=== PATIENT | male | born 1950 | race Caucasian/White ===

== ENCOUNTER 2017-02-05 14:36 | Emergency (ER) | payer OTHER, BC ==
[2017-02-05 15:08] VITALS: BMI 30.4
--- NOTE | 2017-02-05 16:36 | PDOC ---
History of Present Illness - General Chief Complaint: Injury Stated Complaint: FALL Time Seen by Provider: 02/05/17 15:40 Past History - Past Medical History Allergies/Adverse Reactions: Allergies Allergy/AdvReac Type Severity Reaction Status Date / Time No Known Allergies Allergy Verified 02/05/17 15:05 Home Medications: Ambulatory Orders Amlodipine Besylate/Benazepril [Lotrel 10-20 mg Capsule] 1 each PO DAILY #0 capsule 01/24/13 Aspirin [ASA -] 81 mg PO DAILY 02/05/17 Metoprolol Succinate [Toprol Xl] 50 mg PO DAILY 02/05/17 CVA: No COPD: No DVT: No HTN: Yes - Immunization History Immunization Up to Date: Yes - Suicide/Smoking/Psychosocial Hx Smoking History: Never smoked Have you smoked in the past 12 months: No Number of Cigarettes Smoked Daily: 0 Information on smoking cessation initiated: No Hx Alcohol Use: No Drug/Substance Use Hx: No Substance Use Type: None Hx Substance Use Treatment: No *Physical Exam - Vital Signs Last Vital Signs Temp Pulse Resp BP Pulse Ox 97.5 F L 80 16 152/81 100 02/05/17 15:05 02/05/17 15:05 02/05/17 15:05 02/05/17 15:05 02/05/17 15:05 ED Treatment Course - RADIOLOGY Radiology Studies Ordered: Category Date Time Status HEAD CT WITHOUT CONTRAST [CT] Stat CT Scan 02/05/17 16:13 Ordered KNEE 3 POS-LEFT [RAD] Stat Radiology 02/05/17 16:13 Ordered KNEE 3 POS-RIGHT [RAD] Stat Radiology 02/05/17 16:13 Ordered PELVIS [RAD] Stat Radiology 02/05/17 16:21 Ordered SPINE-LUMBAR SACRAL [RAD] Stat Radiology 02/05/17 16:13 Ordered - Medications Given in the ED: ED Medications Discontinued Medications Generic Name Dose Route Start Last Admin Trade Name Freq PRN Reason Stop Dose Admin Oxycodone/Acetaminophen 1 combo 02/05/17 16:14 02/05/17 16:23 Percocet 5/325 - PO 02/05/17 16:15 1 combo ONCE ONE Administration *DC/Admit/Observation/Transfer - Referrals Referrals: Oni Maza MD [Primary Care Provider] - - Patient Instructions - Post Discharge Activity
--- NOTE | 2017-02-05 17:11 | PDOC ---
History of Present Illness - General Chief Complaint: Injury Stated Complaint: FALL Time Seen by Provider: 02/05/17 15:40 History Source: Patient Exam Limitations: No Limitations - History of Present Illness Initial Comments: 02/05/17 16:57 CHIEF COMPLAINT: Fall, bilateral knee pain and back pain HISTORY OF PRESENT ILLNESS: Patient is a 66-year-old male history of hypertension ambulatory to the emergency department reporting that he fell approximately 12 feet was cleaning his gutters the ladder slipped and he held onto the gutter, ago then gave that he fell to the ground onto his feet and then fell back onto his back hitting the back pof his head on stones, ports that he does not believe that he lost consciousness. Presents with bilateral knee pain, back pain and right posterior upper arm pain. Patient was initially seen in fast track, x-rays of bilateral knees, lower back, hip and pelvis, CBC, CMP, urinalysis, head CT ordered by Lakeisha SAUNDERS. MEDS:[ Amlodipine, metoprolol, aspirin] ALLERGIES: [None] PCP: [Dr. Maza] REVIEW OF SYSTEMS: GENERAL/CONSTITUTIONAL: Awake alert and oriented HEAD, EYES, EARS, NOSE AND THROAT: No change in vision. No facial edema, no bruising. NO active bleeding. Nares intact. RESPIRATORY: No cough, wheezing, or hemoptysis. CARDIAC: Denies chest pain, no shortness of breathe. MUSCULOSKELETAL: Right lower back pain, there is a bruise noted to right posterior upper arm, bilateral knee edema and pain, Good ROM to all four extremities with associated pain. NO CVA tenderness. [] lateral neck pain. GI/: Denies abdominal pain, no nausea or vomiting, no bloody stool, no Hematuria. SKIN : No erythema or bruising noted. No abrasion or lacerations. NEUROLOGIC: No loss of consciousness, no numbness or tingling. PHYSICAL EXAM: GENERAL: Awake and alert and oriented x3. EYES: The pupils are equal, round, and reactive to light, with clear, conjunctiva. Good extraocular movement. No nystagmus FACE: Abrasions to left side of face NOSE: No nasal trauma . Midface stable MOUTH: Teeth intact. EARS: The ear canals and tympanic membranes are normal without trauma. No drainage. NECK: No Lower cervical C-spine tenderness, no pain with chin to chest. CHEST: The lungs are clear without crackles, or wheezes. No subcutaneous emphysema. No crepitus. HEART: Heart is regular rhythm, with normal S1 and S2, no murmurs. ABDOMEN: The abdomen is soft and nontender with normal bowel sounds. There is no guarding or rebound. MUSCULOSKELETAL: No spinal point tenderness. No bruising or erythema. Pelvis stable.Decreased range of motion to bilateral knees related to pain and edema, Bilateral patella pain negative drop test. Negative posterior leg test. No joint laxity noted, bruising, abrasions and edema to bilateral knees with right worse than the left +3 popliteal pulse. Negative Homans sign. No calf pain or tenderness, no erythema or edema. EXTREMITIES: Extremities are normal. No visible traumatic injury. NEUROLOGICAL:Mental status: The patient is oriented x3. No Generalized headache , Romberg [-] Cranial nerves: Cranial nerves II through XII are intact Motor: The upper extremities are 5 over 5 in all muscle groups. The lower extremities are 5 over 5 in all muscle groups. Sensation: Sensation is intact to light touch throughout. Cerebellar: Ijfnbx-apharr-onre is normal in both upper extremities. Heel-knee- samuel is normal in both lower extremities. Reflexes: 2+ and symmetric in the upper and lower extremities. Gait: Normal. Heel and toe walking are normal. Tandem gait is normal. SKIN: Bilateral bruising and abrasions to bilateral knees, abrasions to face 02/05/17 18:09 Past History - Past Medical History Allergies/Adverse Reactions: Allergies Allergy/AdvReac Type Severity Reaction Status Date / Time No Known Allergies Allergy Verified 02/05/17 15:05 Home Medications: Ambulatory Orders Amlodipine Besylate/Benazepril [Lotrel 10-20 mg Capsule] 1 each PO DAILY #0 capsule 01/24/13 Aspirin [ASA -] 81 mg PO DAILY 02/05/17 Metoprolol Succinate [Toprol Xl] 50 mg PO DAILY 02/05/17 Oxycodone HCl/Acetaminophen [Percocet 5-325 mg Tablet] 1 - 2 tab PO Q4H #20 tablet MDD 10 02/06/17 CVA: No COPD: No DVT: No HTN: Yes - Immunization History Immunization Up to Date: Yes - Suicide/Smoking/Psychosocial Hx Smoking History: Never smoked Have you smoked in the past 12 months: No Number of Cigarettes Smoked Daily: 0 Information on smoking cessation initiated: No Hx Alcohol Use: No Drug/Substance Use Hx: No Substance Use Type: None Hx Substance Use Treatment: No *Physical Exam - Vital Signs Last Vital Signs Temp Pulse Resp BP Pulse Ox 97.5 F L 80 16 152/81 100 02/05/17 15:05 02/05/17 15:05 02/05/17 15:05 02/05/17 15:05 02/05/17 15:05 ED Treatment Course - LABORATORY CBC & Chemistry Diagram: 02/05/17 18:20 02/05/17 18:20 - Medications Given in the ED: ED Medications Discontinued Medications Generic Name Dose Route Start Last Admin Trade Name Freq PRN Reason Stop Dose Admin Oxycodone/Acetaminophen 1 combo 02/05/17 16:14 02/05/17 16:23 Percocet 5/325 - PO 02/05/17 16:15 1 combo ONCE ONE Administration Medical Decision Making - Medical Decision Making 02/05/17 17:48 A/P: Patient here status post fall from approximately 12 feet onto feet complaining of bilateral knee pain, back pain and bruising to right upper posterior arm. X-rays were performed of lower back and bilateral knees, no acute injury on wet read. Decrease in pain noted after Percocet. Awaiting head CT I am signing this patient out to my colleague: [CHIP Moses] In brief, this patient is being seen in the ED for a chief complaint of: [fall approximately 12 feet, bilateral knee pain, back pain and posterior right upper arm pain] Initial assessment was performed by CHIP Mcfadden and labs, UA, x-rays and CAT scan were ordered, Percocet for pain I have reviewed the following results: [Wet read: Bilateral knees and back by MD Huang, No acute fracture noted, awaiting labs, CT scan of head. ] Pending results are: [Labs, Xrays, Ct Scan, UA] Please call the PCP: [Dr. Maza] Plan for disposition is as follows: [Pending] *DC/Admit/Observation/Transfer Diagnosis at time of Disposition: Knee sprain, bilateral Head injury, closed Qualifiers: Encounter type: initial encounter Qualified Code(s): S09.90XA - Unspecified injury of head, initial encounter Low back pain Qualifiers: Chronicity: acute Back pain laterality: left Sciatica presence: without sciatica Qualified Code(s): M54.5 - Low back pain - Prescriptions Prescriptions: Oxycodone HCl/Acetaminophen [Percocet 5-325 mg Tablet] 1 - 2 tab PO Q4H #20 tablet MDD 10 - Referrals Referrals: Oni Maza MD [Primary Care Provider] - Oni Bay MD [Staff Physician] - Guilherme Stephen MD [Staff Physician] - - Patient Instructions Printed Discharge Instructions: DI for Knee Sprain, DI for Low Back Pain, DI for Closed Head Injury Additional Instructions: Follow-up with the neurosurgeon/Dr. Bay Follow-up with the orthopedist/Dr. Stephen Rest, elevate, ice to your knees Ice to your low back for the next 48 hours Tylenol as needed for pain As discussed in depth, your to return back to the emergency department for any new, persistent/recurrent, worsening or severe discomfort, bladder or bowel dysfunction. - Post Discharge Activity
--- NOTE | 2017-02-05 17:40 | PDOC ---
*Physical Exam - Vital Signs Last Vital Signs Temp Pulse Resp BP Pulse Ox 97.5 F L 80 16 152/81 100 02/05/17 15:05 02/05/17 15:05 02/05/17 15:05 02/05/17 15:05 02/05/17 15:05 ED Treatment Course - Medications Given in the ED: ED Medications Discontinued Medications Generic Name Dose Route Start Last Admin Trade Name Freq PRN Reason Stop Dose Admin Oxycodone/Acetaminophen 1 combo 02/05/17 16:14 02/05/17 16:23 Percocet 5/325 - PO 02/05/17 16:15 1 combo ONCE ONE Administration Medical Decision Making - Medical Decision Making 02/05/17 17:38 Pt seen by the Advanced Practice Provider under my direct supervision Pt interviewed and examined Ancillary studies reviewed I agree with plan as outlined by the Advanced Practice Provider BEN DAY ARTIST Andolino Vital Signs Temp Pulse Resp BP Pulse Ox 97.5 F L 80 16 152/81 100 02/05/17 15:05 02/05/17 15:05 02/05/17 15:05 02/05/17 15:05 02/05/17 15:05 66-year-old male with history of hypertension presents with fall from 12 feet. Patient was attempted to clean his gutters when he was dangling off the side of the roof and he fell med on his feet and then onto his back. Reported hitting his head but likely no loss of consciousness. Patient patient takes baby aspirin. Complains of bilateral knees and lower back pain. Came into the ED for further evaluation. I agree with plan for CAT scan head, x-rays of bilateral knees and lower back. Patient has some scratches along the right upper arm but no bony tenderness. *DC/Admit/Observation/Transfer - Referrals Referrals: Oni Maza MD [Primary Care Provider] - - Patient Instructions - Post Discharge Activity
[2017-02-05 18:26] LABS: BASOPHIL 0.5 % (0-2.0); EOSINOPHIL 0.4 % (0-4.5); MCH 30.9 pg (25.7-33.7); MCHC 34.1 g/dl (32.0-35.9); MEAN CELL VOLUME 90.5 fl (80-96); MEAN PLT VOLUME 7.5 fl (7.5-11.1); PLATELET COUNT 238 K/MM3 (134-434); RDW 14.1 % (11.9-15.9); WHITE BLOOD COUNT 12.9 K/mm3 (4.0-10.0)
[2017-02-05 18:33] LABS: URINE APPEARANCE CLEAR; URINE BILIRUBIN NEGATIVE (NEGATIVE); URINE BLOOD NEGATIVE (NEGATIVE); URINE COLOR LTYELLOW; URINE GLUCOSE (UA) NEGATIVE (NEGATIVE); URINE KETONE NEGATIVE (NEGATIVE); URINE NITRITE NEGATIVE (NEGATIVE); URINE PROTEIN NEGATIVE (NEGATIVE); URINE UROBILINOGEN NEGATIVE mg/dL (0.2-1.0)
[2017-02-05 19:15] LABS: ALBUMIN 3.8 g/dl (3.4-5.0); ALK PHOS 83 U/L (45-117); ANION GAP 7 (8-16); BILIRUBIN,TOTAL 0.6 mg/dL (0.2-1.0); CALCIUM 8.5 mg/dL (8.5-10.1); CO2 27 mmol/L (21-32); GLUCOSE,RANDOM 108 mg/dL (74-106); SGOT/AST 15 U/L (15-37); SGPT/ALT 34 U/L (12-78); TOT PROT 6.9 g/dl (6.4-8.2)
[2017-02-05 19:37] VITALS: BP 133/72; PULSE 78; TEMP 98.1
--- NOTE | 2017-02-05 20:34 | PDOC ---
*Physical Exam - Vital Signs Last Vital Signs Temp Pulse Resp BP Pulse Ox 98.1 F 78 18 133/72 98 02/05/17 19:36 02/05/17 19:36 02/05/17 19:36 02/05/17 19:36 02/05/17 19:36 ED Treatment Course - LABORATORY CBC & Chemistry Diagram: 02/05/17 18:20 02/05/17 18:20 - ADDITIONAL ORDERS Additional order review: Laboratory Results 02/05/17 02/05/17 18:25 18:20 Sodium 143 Potassium 3.8 Chloride 109 H Carbon Dioxide 27 Anion Gap 7 L BUN 12 Creatinine 1.0 Creat Clearance w eGFR > 60 Random Glucose 108 H Calcium 8.5 Total Bilirubin 0.6 D AST 15 D ALT 34 D Alkaline Phosphatase 83 Total Protein 6.9 Albumin 3.8 D Urine Color Ltyellow Urine Appearance Clear Urine pH 5.0 Ur Specific [place] 1.006 Urine Protein Negative Urine Glucose (UA) Negative Urine Ketones Negative Urine Blood Negative Urine Nitrite Negative Urine Bilirubin Negative Urine Urobilinogen Negative 02/05/17 18:20 RBC 5.06 MCV 90.5 MCHC 34.1 RDW 14.1 MPV 7.5 D Neutrophils % 79.0 Lymphocytes % 14.5 D Monocytes % 5.6 Eosinophils % 0.4 D Basophils % 0.5 - RADIOLOGY Radiograph Interpretation: 02/05/17 20:29 Ct head w/o contrast: No abnormality - Medications Given in the ED: ED Medications Discontinued Medications Generic Name Dose Route Start Last Admin Trade Name Freq PRN Reason Stop Dose Admin Oxycodone/Acetaminophen 1 combo 02/05/17 16:14 02/05/17 16:23 Percocet 5/325 - PO 02/05/17 16:15 1 combo ONCE ONE Administration Progress Note - Progress Note Progress Note: 66-year-old male reexamined. Patient is only complaining of low back pains with right greater than left knee pain. Patient denies any headache, dizziness, lightheadedness, neck pains, chest pain, shortness of breath, abdominal pain, bladder/bowel dysfunction, extremity numbness or tingling sensation. Patient is seen walking around the emergency department and is adamant about being discharged. *DC/Admit/Observation/Transfer Diagnosis at time of Disposition: Knee sprain, bilateral Head injury, closed Qualifiers: Encounter type: initial encounter Qualified Code(s): S09.90XA - Unspecified injury of head, initial encounter Low back pain Qualifiers: Chronicity: acute Back pain laterality: left Sciatica presence: without sciatica Qualified Code(s): M54.5 - Low back pain - Referrals Referrals: Oni Maza MD [Primary Care Provider] - Guilherme Stephen MD [Staff Physician] - Oni Bay MD [Staff Physician] - - Patient Instructions Printed Discharge Instructions: DI for Knee Sprain, DI for Low Back Pain, DI for Closed Head Injury Additional Instructions: Follow-up with the neurosurgeon/Dr. Bay Follow-up with the orthopedist/Dr. Stephen Rest, elevate, ice to your knees Ice to your low back for the next 48 hours Tylenol as needed for pain As discussed in depth, your to return back to the emergency department for any new, persistent/recurrent, worsening or severe discomfort, bladder or bowel dysfunction. - Post Discharge Activity
[2017-02-05 22:03] LABS: URINE LEUK ESTERASE TRACE (NEGATIVE)
--- NOTE | 2017-02-06 11:40 | PDOC ---
Patient Follow-up (Call Back) - Post ED Follow - Up Reason for Call Back: Complaint/Condition F/U (I have called patient today to assess his condition patient denies any nausea vomiting, no abdominal pain, just reports pain to bilateral knees was not given any pain medication is taking Aleve I have called in a few tablets of Percocet for severe pain patient will follow-up with orthopedics. I have instructed patient that if any abdominal pain, nausea vomiting, or any other concerns to return immediately to ER.)
== END 2017-02-05 20:42 | disposition home or self-care (01) ==
LOC: JERFT 14:36 → JER 14:36
DX: S09.8XXA Other specified injuries of head, initial encounter (principal); M54.5 Low back pain; M25.561 Pain in right knee; M25.562 Pain in left knee; W11.XXXA Fall on and from ladder, initial encounter; Y93.H9 Activity, other involving exterior property and land maintenance, building and construction; Y92.098 Other place in other non-institutional residence as the place of occurrence of the external cause; Y99.8 Other external cause status; I10 Essential (primary) hypertension
CPT/HCPCS: 36415; 70450-TC; 72100-TC; 72170-TC; 73562-TC-LT; 73562-TC-RT; 80053; 81003; 81015; 85025; 99284-25

== ENCOUNTER 2018-05-05 08:06 | Day surgery (SDC) | payer OTHER, BC ==
[2018-05-04 13:40] VITALS: BMI 32.7
[2018-05-05 09:58] VITALS: TEMP 98.6
[2018-05-05 10:20] VITALS: PULSE 74
[2018-05-05 10:37] VITALS: BP 113/73
--- NOTE | 2018-05-08 15:44 | PATH ---
Surgical Pathology Report Patient Name: JAYCOB STANFORD [facility]. Rec. #: [id number] /Age/Gender: 1950 (Age: 67) / M Account: [id number] Location: ASU-ENDOSCOPY Taken: 05/05/2018 Received: 05/05/2018 Reported: 05/08/2018 Physicians: Ju Khanna M.D. Specimen(s) Received A: RECTAL POLYP B: BX TRANSVERSE COLON POLYP C: BX DISTAL RIGHT COLON POLYP Clinical History History of colon polyp, adenoma Postoperative diagnosis: Diverticulosis, colon polyps Final Diagnosis A. POLYP, RECTUM, POLYPECTOMY: TUBULAR ADENOMA. B. TRANSVERSE COLON POLYP, POLYPECTOMY: HYPERPLASTIC POLYP. C. DISTAL RIGHT COLON POLYP, POLYPECTOMY: HYPERPLASTIC POLYP. Electronically Signed Leda Burnett M.D. Gross Description A. Received in formalin, labeled "polyp rectum" is a dan, irregular portion of soft tissue measuring 0.3 cm. in greatest dimension. The specimen is submitted in toto in one cassette. B. Received in formalin, labeled "polyp transverse colon" is a dan, irregular portion of soft tissue measuring 0.4 cm. in greatest dimension. The specimen is submitted in toto in one cassette. C. Received in formalin, labeled "polyp right colon distal" are 3 dan, irregular portions of soft tissue ranging from 0.3-0.5 cm. in greatest dimension. The specimens are submitted in toto in one cassette. /05/05/2018 saudi05/05/2018
== END 2018-05-05 10:46 | disposition home or self-care (01) ==
LOC: JASU-ENDO 08:06
PROVIDERS: ATTEND Internal Medicine Gastroenterology
PROC: 0DBK8ZX Excision of Ascending Colon, Via Natural or Artificial Opening Endoscopic, Diagnostic (ICD-10-PCS; 2018-05-05)
PROC: 0DBP8ZX Excision of Rectum, Via Natural or Artificial Opening Endoscopic, Diagnostic (ICD-10-PCS; 2018-05-05)
PROC: 0DBL8ZX Excision of Transverse Colon, Via Natural or Artificial Opening Endoscopic, Diagnostic (ICD-10-PCS; principal; 2018-05-05 08:45)
DX: Z12.11 Encounter for screening for malignant neoplasm of colon (principal); Z86.010 Personal history of colon polyps; K62.1 Rectal polyp; D12.2 Benign neoplasm of ascending colon; D12.3 Benign neoplasm of transverse colon; K64.8 Other hemorrhoids
CPT/HCPCS: 88305-TC

== ENCOUNTER 2020-04-03 12:11 | Emergency (ER) | payer OTHER, BC ==
[2020-04-03] MEDS ORDERED: BAMLANIVIMAB 700 MG in SODIUM CHLORIDE 180 ML IVPB ONE (12:39)
[2020-04-03 12:42] VITALS: BMI 31.7
[2020-04-03 14:08] LABS: HEMATOCRIT 47.4 % (35.4-49); HEMOGLOBIN 16.4 GM/dL (11.7-16.9); MCH 31.4 pg (25.7-33.7); MCHC 34.6 g/dl (32.0-35.9); MEAN CELL VOLUME 90.8 fl (80-96); MEAN PLT VOLUME 8.1 fl (7.5-11.1); PLATELET COUNT 202 K/MM3 (134-434); RBC 5.22 M/mm3 (4.00-5.60); RDW 13.8 % (11.9-15.9); WHITE BLOOD COUNT 5.8 K/mm3 (4.0-10.0)
[2020-04-03 14:25] LABS: POTASSIUM 4.1 mmol/L (3.5-5.1)
[2020-04-03 14:27] LABS: CALCIUM 8.4 mg/dL (8.5-10.1)
[2020-04-03 14:34] LABS: CREATININE 0.9 mg/dL (0.55-1.3)
[2020-04-03 15:31] VITALS: BP 117/70; PULSE 70; TEMP 98.2
== END 2020-04-03 16:43 | disposition home or self-care (01) ==
LOC: JER 12:11
DX: U07.1 COVID-19 (principal)
CPT/HCPCS: 36415; 80048; 85027; 99284-25; M0239; Q0239

== ENCOUNTER 2022-02-15 04:18 | Day surgery (SDC) | payer OTHER, BC ==
[2022-02-10 14:46] VITALS: BMI 31.1
[2022-02-15 09:12] VITALS: TEMP 97.8
[2022-02-15 10:25] VITALS: BP 117/63; PULSE 69; RESP 18
== END 2022-02-15 10:15 | disposition home or self-care (01) ==
LOC: JASU-ENDO 04:18
PROVIDERS: ATTEND Internal Medicine Gastroenterology
PROC: 0DBN8ZX Excision of Sigmoid Colon, Via Natural or Artificial Opening Endoscopic, Diagnostic (ICD-10-PCS; principal; 2022-02-15 09:00)
DX: Z12.11 Encounter for screening for malignant neoplasm of colon (principal); K63.5 Polyp of colon; K59.00 Constipation, unspecified; Z86.010 Personal history of colon polyps; K57.30 Diverticulosis of large intestine without perforation or abscess without bleeding; K64.8 Other hemorrhoids
CPT/HCPCS: 88305-TC